=== PATIENT | male | born 1960 | race Caucasian/White ===

== ENCOUNTER 2019-08-31 19:56 | Emergency (ER) | payer OTHER ==
[2019-08-31] MEDS ORDERED: Bacitracin/Neomycin/Polymyxin B Oint 0.9 GM U/D Packet TOP ONE (20:22)
--- NOTE | 2019-08-31 20:39 | EDM.PDOC ---
ED HPI GENERAL MEDICAL PROBLEM - General Chief Complaint: Laceration Stated Complaint: LACERATION Time Seen by Provider: 08/31/19 20:00 Source of Information: Reports: Patient History Limitations: Reports: No Limitations - History of Present Illness INITIAL COMMENTS - FREE TEXT/NARRATIVE: Cut right 4th finger on fan blade Last tetanus UTD No other injury Onset: Today, Sudden Location: Reports: Upper Extremity, Right Context: Reports: Trauma - Related Data Allergies Allergy/AdvReac Type Severity Reaction Status Date / Time No Known Allergies Allergy Verified 08/31/19 19:57 ED ROS GENERAL - Review of Systems Review Of Systems: See Below Skin: Reports: Wound ED EXAM, SKIN/RASH Exam: See Below Exam Limited By: No Limitations General Appearance: Mild Distress Extremities: Other (Right 4th finger with traumatic stellate laceration to flexor surface between PIP and DIP joinit Tissue missing from injury Neurovascular and tendon exam intact) ED SKIN PROCEDURES - Laceration/Wound Repair Right Digit - 4th (Ring) Appearance: Stellate, Irregular Distal NVT: Neuro & Vascular Intact, No Tendon Injury Anesthetic Type: Local Local Anesthesia - Lidocaine (Xylocaine): 1% Plain Local Anesthetic Volume: 4cc Skin Prep: Chlorhexidine (Hibiciens) Exploration/Debridement/Repair: Wound Explored, Moderate Debridement Closed with: Sutures Lac/Wound length In cm: 3 Suture Size: 3-0 # of Sutures: 7 Suture Type: Nylon Sterile Dressing Applied: Nurse Tetanus Status Addressed: Yes Complications: No Course - Orders/Labs/Meds Meds: Medications Discontinued Medications Generic Name Dose Route Start Last Admin Trade Name Tomq PRN Reason Stop Dose Admin Lidocaine HCl 5 ml 08/31/19 20:17 08/31/19 20:30 Xylocaine-Mpf 1% INJECT 08/31/19 20:18 5 ml ONETIME ONE Administration Neomycin/Polymyxin/Bacitracin 1 each 08/31/19 20:22 08/31/19 20:29 Triple Antibiotic Oint TOP 08/31/19 20:23 1 each ONETIME ONE Administration Departure - Departure Time of Disposition: 20:45 Disposition: Home, Self-Care 01 Clinical Impression: Finger laceration Qualifiers: Encounter type: initial encounter Finger: ring finger Damage to nail status: without damage Foreign body presence: without foreign body Laterality: right Qualified Code(s): S61.214A - Laceration without foreign body of right ring finger without damage to nail, initial encounter - Discharge Information *PRESCRIPTION DRUG MONITORING PROGRAM REVIEWED*: Not Applicable *COPY OF PRESCRIPTION DRUG MONITORING REPORT IN PATIENT JOSELIN: Not Applicable Instructions: Laceration Care, Adult Referrals: Edmar Espinal MD [Primary Care Provider] - Additional Instructions: Keep wound clean Return for signs of infection Sutures out in 10-14 days
== END 2019-08-31 20:45 | disposition home or self-care (01) ==
LOC: LL.ED 19:56
DX: S61.214A Laceration without foreign body of right ring finger without damage to nail, initial encounter (principal); W26.8XXA Contact with other sharp object(s), not elsewhere classified, initial encounter
CPT/HCPCS: 12002; 99283; J2001